=== PATIENT | male | born 1955 | race Caucasian/White ===

== ENCOUNTER → 2017-02-01 | Outpatient (CLI) | payer MEDICARE, MEDICAID ==
[~2017-02-01] MED LIST: ASP81CT PO; BENZ0.5T3 PO; CATHETER FLUSH 10 ML SYR IV PRN; CLTR1C90 EXT; CRAN450T9 PO; DCS100C PO; FENO145T2 PO; IOHEXOL 350 MG/ML 100 ML (OMNIPAQUE 350) VIAL IV ONE; MELO-198 PO; MIRT15TA6 PO; NS 100 ML (IVPB) BAG IV ONE; RISP1TAB19 PO; RISP2TAB18 PO; TERA10CA3 PO; TR1C15 TOP; VENL150C PO
--- NOTE | 2017-02-01 10:34 | Diagnostic Imaging Report ---
PROCEDURE: CT head with and without contrast. TECHNIQUE: Multiple contiguous axial images were obtained through the brain before and after the administration of intravenous contrast. INDICATION: Altered behavior. I have no previous. FINDINGS: There is cerebral cortical atrophy with the degree of ventriculomegaly out of proportion to the degree of sulcation. There is a fairly substantial periventricular white matter disease hypodense and suggestive of small vessel sequelae. No cortical edema or sulcal effacement. With IV contrast, no abnormal or suspicious enhancement. No mass, mass effect or hemorrhage. Orbits, sinuses and calvarium appeared nonacute. IMPRESSION: Atrophy with disproportionate ventriculomegaly. Underlying mild hydrocephalus could not be excluded. Chronic appearing periventricular white matter small vessel disease. No findings of focal edema or hemorrhage. No mass or abnormal enhancement. An acute abnormality is not apparent. Dictated by: Dictated on workstation # [id number]
== END ==
LOC: RAD 08:17
PROVIDERS: ATTEND Family Medicine
DX: G31.9 Degenerative disease of nervous system, unspecified (principal); R41.82 Altered mental status, unspecified; F29 Unspecified psychosis not due to a substance or known physiological condition
CPT/HCPCS: 70470

== ENCOUNTER 2018-08-07 12:34 | Emergency (ER) | payer MEDICARE, MEDICAID ==
[~2018-08-07] VITALS: Ht 182.9 cm; Wt 90.7 kg
[~2018-08-07 12:34] MED LIST changes: -CATHETER FLUSH 10 ML SYR IV PRN; -IOHEXOL 350 MG/ML 100 ML (OMNIPAQUE 350) VIAL IV ONE; -NS 100 ML (IVPB) BAG IV ONE
--- NOTE | 2018-08-07 12:36 | NUR ---
TIME LINE NOTE: 1234- EMS arrived to ED with CPR in progress, Report from EMS to ED staff, that pt was eating lunch at [employer] and choked. [facility] staff called EMS at 1159 when they could not dislodge foreign object. CPR was started at that time by [facility] staff. EMS arrived on scene at 1205, CPR still in progress so EMS staff took over at this time. Pt was intubated, I/O started, EPI x 4 given, Atropine x 1 given and bolus fluid running wide open with pressure bag started prior to Pt arriving to ED. 1234-Compressions started immediatly as pt entered ED. 1236- Epi given via I/O, Dr. Cohen in room 1239-Atropine given via I/O 1242- Epi given via I/O 1244-IJ IV started at this time 1246- ET CO2 44 with compressions and bag/ETT ventilation. 1247- 1 Liter warm LR bolus started to IJ IV 1248-Pulse found but pt bradycardia in the 30's. 1249-External pacer turned on at this time by Dr. Naranjo 1250-Epi into IJ 1251- External pacer turned off, no pulse 1252-compressions started 1254-stopped for pulse check, no pulse 1255- Code stopped per Dr. Naranjo and Dr. Cohen 1255- Time of
[2018-08-07] MEDS ORDERED: EPINEPHrine 0.1 MG/ML 10 ML (HOSPIRA) SYR INJ ONE (12:38)
[2018-08-07] MEDS ORDERED: ATROPINE INJECTION 1 MG/10 ML SYR (ABBOTT) INJ ONE (12:38)
--- OUTSIDE RECORDS SUMMARY | 2018-08-07 12:41 | XMS REPORT | Continuity of Care Document ---
Author Author [facility] Organization [facility] Address Unknown Phone Unavailable Allergies Active Description Code Type Severity Reaction Onset Reported/Identified Relationship to Patient Clinical Status Yes No Known Drug Allergies [id number] Drug Allergy Unknown N/A 12/07/2011 Medications There is no data. Problems Date Dx Coded Attending Type Code Diagnosis Diagnosed By 12/07/2011 Ot 276.51 DEHYDRATION 12/07/2011 Ot 780.2 SYNCOPE AND COLLAPSE 12/07/2011 Ot 780.97 ALTERED MENTAL STATUS 12/07/2011 Ot 791.9 ABN URINE FINDINGS NEC 12/07/2011 Ot 793.19 OTHER NONSPECIFIC ABNORMAL FINDING OF ARLENE 05/21/2014 MARY LERMA MD Ot 295.90 SCHIZOPHRENIA NOS-UNSPEC 05/21/2014 MARY LERMA MD Ot 311 DEPRESSIVE DISORDER NEC 05/21/2014 MARY LERMA MD Ot 317 MILD INTELLECTUAL DISABILITIES 05/21/2014 MARY LERMA MD Ot 401.9 HYPERTENSION NOS 05/21/2014 MARY LERMA MD Ot 455.0 INT HEMORRHOID W/O COMPL 05/21/2014 MARY LERMA MD Ot 455.3 EXT HEMORRHOID W/O COMPL 05/21/2014 MARY LERMA MD Ot 564.00 UNSPEC CONSTIPATION 05/21/2014 MARY LERMA MD Ot 716.90 ARTHROPATHY NOS-UNSPEC 03/15/2015 CARLITOS SONI MD Ot 319 UNSPECIFIED INTELLECTUAL DISABILITIES 03/15/2015 CARLITOS SONI MD Ot 790.29 OTHER ABNORMAL GLUCOSE 03/15/2015 CARLITOS SONI MD Ot 992.5 HEAT EXHAUSTION NOS 03/15/2015 CARLITOS SONI MD Ot E000.8 OTHER EXTERNAL CAUSE STATUS 03/15/2015 CARLITOS SONI MD Ot E006.9 OTH ACTIVITY INVG OTH SPORTS ATHLETICS 03/15/2015 CARLITOS SONI MD Ot E849.4 ACCID IN RECREATION AREA 03/15/2015 CARLITOS SONI MD Ot E900.0 EXCESSIVE HEAT: WEATHER 03/15/2015 CARLITOS SONI MD Ot V04.81 ND FOR PROPHYLACTIC VACCIN AND INOCULATI 03/15/2015 NAE MARIO, CARLITOS Rain Ot 319 03/15/2015 CARLITOS SONI MD Ot 790.29 03/15/2015 CARLITOS SONI MD Ot 992.5 03/15/2015 CARLITOS SONI MD Ot E000.8 03/15/2015 CARLITOS SONI MD Ot E006.9 03/15/2015 CARLITOS SONI MD Ot E849.4 03/15/2015 CARLITOS SONI MD Ot E900.0 02/01/2017 MARY LERMA MD Ot V72.84 EXAM PRE-OPERATIVE NOS 02/22/2017 CHRIS SALAZAR MD Ot F29 UNSP PSYCHOSIS NOT DUE TO A SUBSTANCE OR 02/22/2017 CHRIS SALAZAR MD Ot G31.9 DEGENERATIVE DISEASE OF NERVOUS SYSTEM, 02/22/2017 CHRIS SALAZAR MD Ot R41.82 ALTERED MENTAL STATUS, UNSPECIFIED 03/01/2017 CHRIS SALAZAR MD Ot F29 UNSP PSYCHOSIS NOT DUE TO A SUBSTANCE OR 03/01/2017 CHRIS SALAZAR MD Ot G31.9 DEGENERATIVE DISEASE OF NERVOUS SYSTEM, 03/01/2017 CHRIS SALAZAR MD Ot R41.82 ALTERED MENTAL STATUS, UNSPECIFIED Procedures There is no data. Results There is no data. Encounters ACCT No. Visit Date/Time Discharge Status Pt. Type Provider Facility Loc./Unit Complaint [id number] 02/01/2017 08:17:00 02/01/2017 23:59:59 CLS Outpatient CHRIS SALAZAR MD [facility] RAD ALTERED MENTAL STATUS [id number] 03/14/2015 20:48:00 03/15/2015 13:42:00 DIS Inpatient CARLITOS SONI MD [facility] CSD SYNCOPE;FEVER;HYPOVOLEMIA ;HYPONATREMIA [id number] 05/21/2014 08:32:00 05/21/2014 12:50:00 DIS Outpatient MARY LERMA MD [facility] SDC CHANGE IN BOWEL HABITS [id number] 05/19/2014 06:31:00 05/19/2014 23:59:59 CLS Outpatient MARIA GUADALUPE MARIO, MARY [facility] PREOP CHANGE IN BOWEL HABITS [id number] 08/07/2018 12:37:00 ACT Emergency CAYDEN VIDAL MD [facility] [id number] 12/07/2011 13:40:00 Document Registration [email or web address] 03/14/2015 17:08:48 ACT Document Registration
--- OUTSIDE RECORDS SUMMARY | 2018-08-07 12:41 | XMS REPORT ---
Author Author JOSE WRIGHT Organization [facility] Address [address] [place] [address] Phone Unavailable Care Team Providers Care Learning Coordinator Name Role Phone JOSE WRIGHT Unavailable Unavailable PROBLEMS Unknown Problems ALLERGIES No Known Allergies ENCOUNTERS Encounter Location Date Diagnosis [facility] [id number] [place] [address] [id number] Sep, Encounter for dental exam and cleaning w/o abnormal findings Z01.20 [facility] [id number] [place] [address] [id number] 14 Sep, 2015 Dental caries K02.9 [facility] [address] [id number] 14 Aug, 2015 Encounter for dental examination and cleaning without abnormal findings Z01.20 [facility] [id number] [place] [id number] 10 Jul, 2015 Dental caries K02.9 [facility] [id number] [place] [address] [id number] 03 Jul, 2015 Dental examination Z01.20 IMMUNIZATIONS No Known Immunizations SOCIAL HISTORY Never Assessed REASON FOR VISIT ADULT OUTREACH [facility] PLAN OF CARE Activity Details Follow Up 3 Months Reason:ON SITE RECALL VITAL SIGNS MEDICATIONS Medication Instructions Dosage Frequency Start Date End Date Duration Status Tricor Active Remeron Active Colace Not-Taking Terazosin HCl Active Cogentin Not-Taking Aspirin Adult Low Dose Not-Taking Hytrin Not-Taking Effexor XR Active Amoxicillin 500 MG Orally every 6 hours 1 capsule 6h 7 days Not- Taking Risperdal Active Glucophage Active Mobic Not-Taking RESULTS No Results PROCEDURES Procedure Date Ordered Result Body Site SCREENING OF A PATIENT September 28, 2017 Billing Notes on claim September 28, 2017 INSTRUCTIONS MEDICATIONS ADMINISTERED No Known Medications MEDICAL (GENERAL) HISTORY Type Description Date Medical History high blood pressure Medical History Diabetes Medical History blood thinners (ASA) Medical History Arthritis Medical History mild mr Medical History schizophrenia undiffentiated Medical History chronic depression Hospitalization History heat exhaustion 2015
--- NOTE | 2018-08-07 13:25 | NUR ---
PT BM CLEANED OFF, PT TO BE A CORONERS CASE
--- NOTE | 2018-08-07 13:30 | NUR ---
NEW [facility] STAFF IN TO SEE PT
--- NOTE | 2018-08-07 13:51 | ED CPR ---
HPI-CPR General Chief Complaint: Code Blue Source of Information: Patient Exam Limitations: No Limitations History of Present Illness Date Seen by Provider: Aug 07, 2018 Time Seen by Provider: 12:36 Initial Comments Here by EMS with report of cardiopulmonary arrest in PEA after having episode of choking at lunch time. Patient apparently was eaten lunch when he started choking. EMS was called. While they were on the phone with EMS, patient went unresponsive and bystander CPR was initiated. On arrival by EMS, CPR was still in progress. They took over care of the patient and initiated IO. Cardiac arrest protocol was initiated and CPR was continued. Patient did have fluids initiated as well has multiple rounds of epinephrine. Total of 4 mg of epinephrine was given as well as atropine 1 mg IV for sustained PEA and cardiopulmonary arrest. Patient was intubated in the field. Patient did have positive end-tidal CO2 changes with readings up to 47 on their monitor. Patient arrives without pulse and CPR continued. Patient is a resident of [place] Initial Complaints: Collapsed Witnessed Arrest: Yes Bystander CPR: Yes Down-Time Before ACLS: 6 minutes Paramedics Initial Findings: No Pulse, PED Bradycardia Pre Hospital Treatment: Bag Valve Mask, CPR/Thumper, Intubation, IV Fluids, Atropine (mg) (1), Epinephrine (mg) (4) Allergies and Home Medications Allergies Coded Allergies: No Known Drug Allergies (Unverified , 12/07/11) Home Medications Aspirin 81 Mg Chew, 81 MG PO DAILY, (Reported) Benztropine Mesylate 0.5 Mg Tablet, 1 EACH PO BID, (Reported) Docusate Sodium 100 Mg Cap, 100 MG PO UD, (Reported) TAKE 1 CAPSULE BY MOUTH ON MONDAY AND MONDAY Fenofibrate,Micronized 145 Mg Tablet, 1 EACH PO HS, (Reported) Meloxicam 7.5 Mg Tablet, 1 EACH PO BID, (Reported) Mirtazapine 15 Mg Tablet, 7.5 MG PO HS, (Reported) Risperidone 1 Mg Tablet, 1 MG PO HS, (Reported) Risperidone 2 Mg Tablet, 2 MG PO BID, (Reported) Terazosin Hcl 10 Mg Capsule, 5 MG PO DAILY, (Reported) Triamcinolone Acet 15 Gm Cr, 0 TOP BID PRN, (Reported) APPLY SPRARINGLY TO AFFECTED AREA(S) LOWER EXTREMITIES Venlafaxine Hcl 150 Mg Cap.sr.24h, 1 EACH PO DAILY, (Reported) Patient Home Medication List Home Medication List Reviewed: Yes Review of Systems Review of Systems Constitutional: see HPI Other Comments Unable to complete review of systems due to CPR in progress Past Kqgfvvc-Wltnvw-Wrfvft Hx Past Med/Social Hx: Reviewed Nursing Past Med/Soc Hx Immunizations Up To Date Date of Pneumonia Vaccine: Jun 19, 2011 Date of Influenza Vaccine: Mar 19, 2014 Past Medical History High Cholesterol Reproductive Disorders: No Chronic Constipation Loss of Vision: Denies Hearing Impairment: Denies Schizophrenia, Depression Adverse Reaction/Blood Tranf: No Family Medical History Reviewed Nursing Family Hx Patient reports no known family medical history. Physical Exam Vital Signs Capillary Refill : Height, Weight, BMI Height: 5'9.00" Weight: 214lbs. 0.0oz. 97.540574wa; BMI Method:Estimated General Appearance: Other (unresponsive with CPR in progress) HEENT: Other (pupils fixed and dilated) Respiratory: Other (bilateral breath sounds with bagging) Cardiovascular: Other (pulseless) Gastrointestinal: Soft; No Mass Neurologic/Psychiatric: Other (and unresponsive, pulseless and apneic) Skin: Cool, Pallor Progress/Results/Core Measures Results/Orders My Orders Orders - CAYDEN VIDAL MD Atropine Inj 10 Mg Syringe (Atropine In (08/07/18 12:38) Epinephrine Emergency Syringe (Epinephr (08/07/18 12:38) Progress Progress Note : Progress Note Seen and evaluated on arrival by EMS. CPR in progress on arrival and continues. Verified bilateral breath sounds. Patient bradycardic PEA on monitor and pulseless. CPR continued and epinephrine [address] Cohen arrives shortly after patient arrival. Patient remains in slow PEA and atropine 1 mg IO given. CPR continued. 1244: Right EJ IV initiated and epinephrine IV given. 1248: Weak and thready bradycardic pulse noted. Patient paced externally. Blood pressure essentially unreadable. Repeat epinephrine 1 mg IV given. 1252: Pacer has been turned off after pulse was lost. Compressions continued. We evaluated for further options for therapy as patient remains in PEA without agonal respirations and with no return of spontaneous circulations. Patient's pupils are fixed and dilated. Down time has been almost an hour. Consulted with Dr. Cohen and we both agree as well as the team that no further options are available. 1255 CPR discontinued. Patient without agonal respirations and no return of spontaneous circulation. Time of 1255. 1356: Plant Breeder Scientist has arrived and case discussed with him. Patient's care staff has also been to see patient and were informed of findings. Patient has been released by the playroom attendant. Departure Impression Primary Impression: Cardiopulmonary arrest Disposition: 20 Condition: Departure-Patient Inst. Decision time for Depature: 12:55 Referrals: CHRIS SALAZAR MD (PCP/Family) Primary Care Physician CAYDEN VIDAL MD Aug 07, 2018 13:51
--- NOTE | 2018-08-07 13:56 | NUR ---
[facility] HERE, PT RELEASED
--- NOTE | 2018-08-07 14:13 | NUR ---
[facility] NOTIFIED, RAFAEL @ [facility] NOTIFIED THAT MUST WIAT FOR MIDWEST BEFORE CAN BE RELASED. PLAN TO PUT PT IN ROOM FOR HOLDING.
--- NOTE | 2018-08-07 16:00 | NUR ---
[facility] CALLED AND WANTS PT BODY TO BE COOLED
--- NOTE | 2018-08-07 16:01 | NUR ---
[facility] HAD NOT CALLED FAMILY FOR INFORMATION ON ORGAN HARVEST OF THIS X
--- NOTE | 2018-08-07 17:35 | NUR ---
[facility] CALLED TO SAY THEY HAVE TRANSPORT ENROUTE FROM [facility]
--- NOTE | 2018-08-07 18:57 | NUR ---
This rn spoke with patient sister Elana Vega for consent to release body to mortuary. She gives telephone consent at this time to this rn and ricky costa RN for tx to mortuary. Elana's phone number is
--- NOTE | 2018-08-07 19:00 | NUR ---
1900 REPORT TO KATIA HARDY MATERIALS SCHEDULER
[2018-08-07 20:40] VITALS: BP 0/0
== END 2018-08-07 20:32 | disposition expired ==
LOC: EDUNIT# 12:36 → ER 12:37
DX: I46.9 Cardiac arrest, cause unspecified (principal); E78.00 Pure hypercholesterolemia, unspecified; F20.9 Schizophrenia, unspecified; F32.9 Major depressive disorder, single episode, unspecified; Z87.19 Personal history of other diseases of the digestive system; Z99.81 Dependence on supplemental oxygen; Z79.82 Long term (current) use of aspirin
CPT/HCPCS: 36680